=== PATIENT | female | born 1995 | race Caucasian/White ===

== ENCOUNTER 2018-01-11 12:55 | Emergency (ER) | payer OTHER ==
[~2018-01-11] VITALS: Ht 167.6 cm; Wt 115.0 kg
[~2018-01-11 12:55] MED LIST: FOLI1 PO; PNV11TAB PO; PYRI50 PO
[2018-01-11] MEDS ORDERED: HYDROCODONE/ACETAMINOPHEN 5-325 MG TABLET PO ONE (15:15)
[2018-01-11] MEDS ORDERED: KETOROLAC TROMETHAMINE 30 MG/ML VIAL IM ONE (15:15)
[2018-01-11 16:24] VITALS: BP 118/68
== END 2018-01-11 16:26 | disposition home or self-care (01) ==
LOC: EMS 12:57
DX: M54.42 Lumbago with sciatica, left side (principal); R20.2 Paresthesia of skin; F12.90 Cannabis use, unspecified, uncomplicated; F14.90 Cocaine use, unspecified, uncomplicated; Z87.891 Personal history of nicotine dependence; Z90.49 Acquired absence of other specified parts of digestive tract
CPT/HCPCS: 72100; 81025; 96372; 99284; J1885